=== PATIENT | male | born 1980 | race Caucasian/White ===

== ENCOUNTER 2020-12-27 18:51 | Emergency (ER) | payer MEDICAID ==
[~2020-12-27 18:51] MED LIST: RESPIRIDAL
== END 2020-12-27 19:00 | disposition left against medical advice (07) ==
LOC: SED 18:51
DX: M79.606 Pain in leg, unspecified (principal); Z53.21 Procedure and treatment not carried out due to patient leaving prior to being seen by health care provider

== ENCOUNTER 2021-03-13 15:51 | Emergency (ER) | payer MEDICAID ==
[~2021-03-13] VITALS: Ht 182.9 cm; Wt 99.8 kg
[2021-03-13 15:57] VITALS: BP_SYST 147
--- NOTE | 2021-03-13 16:09 | NUR ---
Patient to ER bed 7 to gown for evaluation. Side rails up. Report given to ANTOLIN VILLATORO.
--- NOTE | 2021-03-13 16:15 | NUR ---
PT CAME IN C/O LEFT EYE IRRITATION, STATES HE THINKS THERE IS A PIECE OF WOOD FROM A TREE IN HIS EYE. PT IS AMBULATORY, [id number], V/S STABLE.
[2021-03-13 16:20] VITALS: BP_SYST 147
--- NOTE | 2021-03-13 16:20 | NUR ---
Patient left without being seen.
== END 2021-03-13 16:20 | disposition left against medical advice (07) ==
LOC: SED 15:51
DX: H57.12 Ocular pain, left eye (principal); Z53.21 Procedure and treatment not carried out due to patient leaving prior to being seen by health care provider